=== PATIENT | male | born 1980 ===

== ENCOUNTER → 2023-05-13 | Day surgery (SDC) | payer OTHER ==
[~2023-05-13] MED LIST: KETO10TA2 PO; MIRALAX17 GM PO; TRAMADOL HCL50 MG PO; TYLENOL ARTHRI650 MG PO
== END | disposition home or self-care (01) ==
LOC: ADM 05-11 08:15 → CIR.AMB 08:15
PROVIDERS: ATTEND Surgery
DX: K40.90 Unilateral inguinal hernia, without obstruction or gangrene, not specified as recurrent (principal); I10 Essential (primary) hypertension; R10.9 Unspecified abdominal pain
CPT/HCPCS: 49650; C1781